=== PATIENT | female | born 1950 | race Caucasian/White ===

== ENCOUNTER → 2020-07-13 10:53 | Outpatient (CLI) | payer MEDICARE, BC, SELFPAY | PROVIDERS: PCP Family Medicine; Visit Provider Family Medicine | DX: Z20.822 Contact with and (suspected) exposure to COVID-19 (principal); U07.1 COVID-19 | CPT/HCPCS: U0003 ==

== ENCOUNTER 2021-02-19 15:56 | Emergency (ER) | payer MEDICARE, BC, SELFPAY ==
[2021-02-19 16:00] VITALS: BP 124/96; PULSE 94; RESP 18; TEMP 36.8; O2SAT 99; BMI 43.6
--- NOTE | 2021-02-19 16:36 | HMH.EDUTC ---
[facility] [place] Disposition Clinical Impression: Sinusitis Qualifiers: Sinusitis location: unspecified location Chronicity: unspecified Qualified Code(s): J32.9 - Chronic sinusitis, unspecified Disposition: Home, Self-Care Condition on Discharge: Good Instructions: Sinusitis, DI for Sinusitis, Azithromycin Additional Instructions: *Monitor Temp, Over the counter Motrin or Tylenol as directed/as needed Tylenol every 4 hours and Motrin every 6 hours (as long as your family doctor has told you that you can take it) for fever or pain. and straight to ER if unable to lower temp less than 101.0 after medication given *Warm salt water gargles may help to soothe the throat *Throat Lozenges *Warm fluids like tea with honey may help to soothe the throat *Sleep elevated *Humidifier/Vaporizer *Take medication as prescribed Follow up IMMEDIATELY for new or worsening symptoms or no Noticeable improvement over the next 48-72 hours. 911 for difficulty breathing or swallowing Referrals: Toby Lorenzana [Primary Care Provider] - As needed Time of Disposition: 16:44 Medical Decision Making - Josh Inquiry Pt receiving controlled substance: No Josh was queried for this patient: No Vital Signs: 02/19/21 16:00 Temperature 98.2 F Temperature Source Oral Pulse Rate [Right Brachial] 94 H Respiratory Rate 18 Blood Pressure [Right Arm] 124/96 H Blood Pressure Mean [Right Arm] 105 Blood Pressure Source [Right Arm] Automatic Cuff Blood Pressure Position [Right Arm] Sitting 02 Sat by Pulse Oximetry 99 Oxygen Delivery Method Room Air Medical Decision Narrative: Patient states that she has taken azithromycin in the past without reactions or complications [facility] HPI - General Stated complaint: poss sinus inf Time Seen by Provider: 02/19/21 16:36 Mode of Arrival: Ambulatory Source of Information: Patient Limitations: No Limitations Description of Symptoms (Recalled from Triage Doc. by RN): PATIENT C/O POSSIBLE SINUS INFECTION HEENT Symptoms (Recalled from RN notes): Yes Resp Symptoms (Recalled from RN notes): No Skin Symptoms (Recalled from RN notes): No MS Symptoms (Recalled from RN notes): No Functional Status (Recalled from RN notes): WNL - History of Present Illness Provider Complaint: Patient state that she feels like she has a sinus infection State that she has been having sinus pain and pressure and feeling pressure in her ears and behind her eyes like she gets when she has a sinus infection State that she wasnt able to get in to see her PCP so she came in here to get checked - Related Data Allergies Allergy/AdvReac Type Severity Reaction Status Date / Time carbamazepine [From Tegretol] Allergy Verified 02/19/21 16:36 guaifenesin [From Mucinex] Allergy Verified 02/19/21 16:36 metformin Allergy Verified 02/19/21 16:36 Penicillins Allergy Verified 02/19/21 16:36 topiramate [From Topamax] Allergy Verified 02/19/21 16:36 - Worker's Comp Is this a Worker's Comp case?: No [facility] History - Hepatitis A Screen Drug use history?: No High risk sexual behaviors?: No History of sexually transmitted infection?: No Currently employed?: No Childcare worker?: No Do you have indoor plumbing?: Yes Do you have electricity?: Yes Attestation statement:: This patient has been screened for Hepatitis A risk factors. I have reviewed the patient's past medical history: Yes ROS Obtained: Yes All systems reviewed & no additional complaints, Yes Systems reviewed as appropriate & no additional complaints - Constitutional Constitutional: Reports system reviewed and no additional complaints, except as docu, Denies body ache, Denies chills, Denies fever(s), Denies headache(s) - ENT Ears, Nose, Mouth, and Throat: Reports system reviewed and no additional complaints, except as docu, Reports sinus pain, Reports sinus pressure, Denies sore throat - Cardiovascular Cardiovascular: Reports system reviewed and no additional complaints, exce
[2021-02-19 16:47] VITALS: BP 124/96; PULSE 94; RESP 18; TEMP 36.8; O2SAT 99
== END 2021-02-19 16:55 | disposition home or self-care (01) ==
PROVIDERS: Emergency Provider Nurse Practitioner; PCP Family Medicine
DX: J32.9 Chronic sinusitis, unspecified (principal); Z88.0 Allergy status to penicillin; Z88.8 Allergy status to other drugs, medicaments and biological substances
CPT/HCPCS: G0463; 99202

== ENCOUNTER 2022-11-12 10:24 | Emergency (ER) | payer MEDICARE, BC, SELFPAY ==
[2022-11-12 10:40] VITALS: BP 152/64; PULSE 89; RESP 20; TEMP 36.7; O2SAT 96; BMI 43.6
--- NOTE | 2022-11-12 10:54 | EXP.UTC ---
Discharge Plan Disposition Patient Disposition: Home, Self-Care Condition: Good Prescriptions Prescriptions: New azithromycin [Zithromax Z-Brayan] 250 mg tablet See Rx Instructions .ROUTE .COMPLEX 5 Days Qty: 6 0RF Rx Instructions: For 250 mg dose pack: take 500 mg today (day 1), then 250 mg for 4 days (days 2-5) prednisone [prednisone] 20 mg tablet 20 mg PO BID 5 Days Qty: 10 0RF No Action azithromycin 250 MG tablet 250 mg PO DIRECTED Qty: 6 0RF Rx Instructions: Take two (2) tablets on day #1, then one (1) tablet day #2 thru #5 Referrals Follow up/Referrals: Toby Lorenzana [Primary Care Provider] - See instructions Activity Restrictions/Add. Instructions Additional Instructions/Restrictions: *Monitor Temp, Over the counter Motrin or Tylenol as directed/as needed Tylenol every 4 hours and Motrin every 6 hours (as long as your family doctor has told you that you can take it) for fever or pain. and straight to ER if unable to lower temp less than 101.0 after medication given *Warm salt water gargles may help to soothe the throat *Throat Lozenges? *Warm fluids like tea with honey may help to soothe the throat? *Sleep elevated *Humidifier/Vaporizer Your throat swab was sent for culture. Those results are typically sent to your primary care. Be sure to follow up in 2-3 days with your family doctor/primary care physician if no improvement so they can review those result and treat if necessary. If you don?t have a primary care doctor, I recommend you get one but in the mean time, you will have to return to a walk in clinic Follow up IMMEDIATELY for new or worsening symptoms or no Noticeable improvement over the next 48-72 hours. 911 for difficulty breathing or swallowing Clinical Impressions Clinical Impression: Sinusitis, Bronchitis Instructions Patient Instructions: DI for Sinusitis, Sinusitis, Acute Bronchitis Discharge ED Provider: Emelina Perez [facility] [place] General Stated complaint: sore throat, chills, cough Mode of Arrival: Ambulatory Source of Information: Patient Limitations: No Limitations Time Seen by Provider: 11/12/22 10:54 Description of Symptoms (Recalled from Triage Doc. 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 States that she started yesterday with sore throat and productive cough States that she waws worried that she may have strep throat Related Data Previous Rx's Medication Instructions Recorded azithromycin 250 mg tablet 250 mg PO DIRECTED #6 tabs 02/19/21 azithromycin 250 mg tablet See Rx Instructions PO .COMPLEX 5 11/12/22 (Zithromax Z-Brayan) days #6 tabs prednisone 20 mg tablet 20 mg PO BID 5 days #10 tabs 11/12/22 Allergies Allergy/AdvReac Type Severity Reaction Status Date / Time carbamazepine [From Tegretol] Allergy Verified 02/19/21 16:36 guaifenesin [From Mucinex] Allergy Verified 02/19/21 16:36 metformin Allergy Verified 02/19/21 16:36 Penicillins Allergy Verified 02/19/21 16:36 topiramate [From Topamax] Allergy Verified 02/19/21 16:36 Worker's Comp Is this a Worker's Comp case?: No [facility] Disclaimer: The information contained in this section may have been updated after the patient was seen, as this information can be updated by other users. Social History Smoking Status: Unknown if ever smoked alcohol intake: never current occupational status: employed Travel in the last 8 weeks: None ROS Obtained: Yes All systems reviewed & no additional complaints except as documented and Yes Systems reviewed as appropria
[2022-11-12 11:07] LABS: UTC Strep Screen (Rapid) Negative (Negative)
[2022-11-12 11:17] VITALS: BP 152/64; PULSE 89; RESP 20; TEMP 36.7; O2SAT 96
== END 2022-11-12 11:24 | disposition home or self-care (01) ==
PROVIDERS: Emergency Provider Nurse Practitioner; PCP Family Medicine
DX: J20.9 Acute bronchitis, unspecified (principal); J01.90 Acute sinusitis, unspecified
CPT/HCPCS: 87880; 99212; 99214; G0463

== ENCOUNTER 2024-12-06 12:58 | Emergency (ER) | payer MEDICARE, BC, SELFPAY ==
[2024-12-06 13:07] VITALS: BP 192/98; PULSE 81; RESP 13; TEMP 36.6; O2SAT 97; BMI 44.8
--- OUTSIDE RECORDS SUMMARY | 2024-12-06 13:07 | XMS_ITS | Data Portability ---
Author Organization [facility] ADMIN Address [address] [place] [address] Assessment No assessment recorded. Plan of Treatment Reminders Order Date Submit Date Provider Last Modified By Organization Details Last Modified Time Details Appointments None record ed. Lab None record ed. Referral None record ed. Procedures None record ed. Surgeries None record ed. Imaging None record ed. Medication Orders None record ed. Patient TargetsNo targets recorded. Patient InstructionsNo instructions recorded. Reason for Referral None Reported. Results Created Date Observation Date Name Description Value Unit Range Abnormal Flag Note LastModifiedBy Organization Detail LastModifiedTime Result Notes None recorded. Procedures Surgical History Date Name Laterality Status Provider Name and Address Organization Details Recorded Time 03/18/20 24 laparoscopic appendectomy completed Shayan Mahajan [facility] [place] 04/02/2024 08:45:35 Imaging Results None recorded. Procedure Notes None recorded. Medical Equipment None Reported. Allergies Allergen ID Allergen Name Allergen Category Reaction Reaction Severity Criticality Documentation Date Start Date Code Code System Note Provider Name and Address Organization Details Recorded Time [id number] Cipro medicatio n Not available Not available Not available 04/02/202437712 3 RxNorm Shayan Mahajan dane [facility] [place] 10:14:01 Medications Name Sig Start Date Stop Date Status Note LastModified by Organization Details LastModified Time pioglitazone 15 mg tablet TAKE 1 TABLET BY MOUTH EVERY DAY active Not Available Not Available No t Available promethazine -DM 6.25 mg-15 mg/5 mL oral syrup TAKE 5 ML BY MOUTH EVERY 6 HOURS NEEDED FOR COUGH / CONGESTION / DRAINAGE active Not Available Not Available N ot Available gabapentin 600 mg tablet TAKE 1 TABLET BY MOUTH EVERY 6 HOURS active Not Available Not Available No t Available doxycycline hyclate 100 mg capsule TAKE 1 CAPSULE BY MOUTH TWICE A DAY FOR 10 DAYS active Not Available Not Available No t Available azithromycin 250 mg tablet TAKE 2 TABLETS BY MOUTH TODAY, THEN TAKE 1 TABLET DAILY FOR 4 DAYS DIRECTED active Not Available Not Available No t Available tizanidine 4 mg tablet TAKE 1 TABLET BY MOUTH THREE TIMES A DAY NEEDED FOR MUSCLE PAIN active Not Available Not Available No t Available prednisone 20 mg tablet TAKE 2 TABLETS BY MOUTH DAILY FOR 4 DAYS, 1 FOR 4 DAYS, 1/2 FOR 4 DAYS, THEN STOP active Not Available Not Available No t Available Synthroid 100 mcg tablet TAKE 1 TABLET BY MOUTH EVERY DAY active Not Available Not Available No t Available ciprofloxaci n 500 mg tablet TAKE 1 TABLET BY MOUTH TWICE A DAY active Not Available Not Available No t Available sulfamethoxa zole 800 mg-trimethop rim 160 mg tablet active Not Available Not Available Not Available omeprazole 40 mg capsule,marshal yed release TAKE 1 CAPSULE BY MOUTH EVERY MORNING active Not Available Not Available No t Available carvedilol 3.125 mg tablet TAKE 1 TABLET BY MOUTH TWICE A DAY active Not Available Not Available No t Available oxycodone-ac etaminophen 5 mg-325 mg tablet active Not Available Not Available Not Available benzonatate 100 mg capsule TAKE 1 CAPSULE ORALLY THREE TIMES A DAY NEEDED FOR COUGH active Not Available Not Available No t Available glimepiride 4 mg tablet TAKE 1 TABLET BY MOUTH EVERY DAY active Not Available Not Available No t Available ibuprofen 600 mg tablet active Not Available Not Available Not Available levofloxacin 500 mg tablet TAKE 1 TABLET BY MOUTH EVERY DAY active Not Available Not Available No t Available methylpredni solone 4 mg tablets in a dose pack TAKE 6 TABLETS ON DAY 1 DIRECTED ON PACKAGE AND DECREASE BY 1 TAB EACH DAY FOR A TOTAL OF 6 DAYS active Not Available Not Available No t Available Ventolin HFA 90 mcg/actuatio n aerosol inhaler INHALE 2 PUFFS DIRECTED EVERY 6 HOURS active Not Available Not Available No t Available cholecalcife rol (vitamin D3) 1,250 mcg (50,000 unit) capsule TAKE 1 CAPSULE BY MOUTH EVERY MONTH active Not Available Not Available No t Available EC-Naproxen 500 mg tablet,delay ed release TAKE 1 TABLET BY MOUTH TWICE A DAY active Not Available Not Available No t Available Vitals Date Recorded Body temperature Oxygen saturation Oxygen saturation in Arterial blood by Pulse oximetry Heart rate Body height Systolic blood pressure Diastolic blood pressure Provider Name and Address Organization Details Last Updated DateTime 4 97.1 [degF] 98 % 98 % 78 /min 170.18 cm 132 mm[Hg] 88 mm[Hg] Shayan Mahajan [place] - [facility] [place] [facility] [place] 4 10:11:55 Social History None recorded. Functional Status None recorded. Mental Status None recorded. Family History Nothing Reported. Medical History No medical history recorded. Gynecological HistoryNo gynecological history recorded. Obstetrics History GPAL:G 0 P 0 0 0 0 Past Encounters Encounter ID Performer Location Encounter Start Date Encounter Closed Date Diagnosis/Indication Diagnosis SNOMED-CT Code Diagnosis ICD10 Code Diagnosis Note [id number] Angeline Alberts MD [facility] [address] [facility] [address] [place] [address] 04/02/2024 09:46:58 04/02/2024 10:27:25 Acute appendicitis 15968031 K35.80 stable postop. She may resume activity as tolerated. There was some mild suture reaction at 1 of the incision sites with minimal scabbing. I have recommende d not soaking the area until this has resolved. Skin react ion to suture material [id number] T81.89XA Health Concerns Section Related Observation LastModified by Organization Detai ls LastModified Time None Recorded Concern Status LastModified by Organization Details LastModified Time None Recorded Advance Directives Directive None Recorded Payers Insurance Date Sequence Insurance Name Policy Number Policy Fischer Covered Member ID Fischer Member ID Guarantor Name 04/02/2024 1 [place] Andra Alvarenga [id number] Andra Alvarenga 04/02/2024 2 [place] [id number] Andra Alvarenga [id number] Andra Alvarenga Notes Date Note Type Note Provider Name and Address Organization Details Recorded Time 04/02/2024 text/html 2 weeks status post laparoscopic appendectomy. Pathology showed acute appendicitis and serositis. She feels well overall, has some mild erythema and drainage surrounding the lower abdominal incision, has been using Neosporin on this. Angeline Alberts MD [address] [facility], [place], [address], [place] - [facility] - [place] & [place] 04/02/2024 10:29:08 OBGyn Episode No OBEpisode recorded.
--- OUTSIDE RECORDS SUMMARY | 2024-12-06 13:07 | XMS_ITS | Clinical Summary ---
Author Organization Healthcare Address [address] [place] [address] Care Team Providers Care Ghost Writer Name Role Phone Toby Lorenzana MD Primary Care Provider [phone] Allergies Active Allergy Reactions Criticality Noted Date Comments Carbamazepine Unknown - Patient st ates they do not know rxn details,Rash Low 11/27/2013 Guaifenesin Er Anaphylaxis High 08/13/2017 Metformin Diarrhea Medium 01/15/2021 Penicillins Unknown - Patient st ates they do not know rxn details Low 11/27/2013 Topiramate Unknown - Patient st ates they do not know rxn details Low 11/27/2013 Medications BABY ASPIRIN PO 4 Active Calcium Carbonate-Vit D-Min (CALCIUM 1200 PO) 4 Caltrate Calcium daily 4 Active carvedilol (Coreg) 3.125 MG tablet 1 Active gabapentin (Neurontin) 300 MG capsule 3 Active levothyroxine (Synthroid, Levoxyl) 100 MCG tablet 3 Active cetirizine (ZyrTEC) 10 MG tablet Active omeprazole (PriLOSEC) [address] capsule Do not crush or chew. 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 02/24/2022 Pseudophakia of both eyes 02/24/2022 Left eye injury 06/21/2021 Nuclear sclerotic cataract of right eye 09/22/19 21 Combined form of senile cataract of left eye Essential hypertension 11/27/2013 Hyperlipidemia 11/27/2013 Hypothyroidism 11/27/2013 Osteoarthritis of foot, 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/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 Osteoarthritis of left knee 11/27/2013 Tibialis posterior tendon tear, nontraumatic Trigeminal neuralgia 11/27/2013 Family History Medical History Relation Name Comments Cardiac disorder Father Other cancer Father Diabetes Mother Hypertension Mother Thyroid disease Mother Relation Name Status Comments Father Mother Social History Tobacco Use Types Packs/Day Years Used Date Smoking Tobacco: Never Smokeless Tobacco: Never Alcohol Use Standard Drinks/Week Comments Yes 0 (1 standard drink = 0.6 oz pur e alcohol) Comments Unknown Sex and Gender Information Value Date Recorded Sex Assigned at Not on file Legal Sex Female 6:15 PM EDT Gender Identity Not on file Sexual Orientation Not on file Last Filed Vital Signs Vital Sign Reading Time Taken Comments Blood Pressure 137/82 12/11/2013 2:40 PM EDT Pulse - - Temperature - - Respiratory Rate - - Oxygen Saturation - - Inhaled Oxygen Concentration - - Weight 83.9 kg (185 lb 0.2 oz) 12/11/2013 2:01 P M EDT Height 172.7 cm (5' 8 ) 12/11/2013 2:01 PM EDT Body Mass Index 28.13 12/11/2013 2:01 PM EDT Plan of Treatment Health Maintenance Due Date Last Done Comments [facility]-Bone Density Scan 1948 [facility]-Depression Screening 1948 [facility]-Hepatitis C Screening 1950 [facility]-Medicare Annual Wellness (AWV) 1948 [facility]-/Child/Adol SDOH Screenings 1948 [facility]- SDOH Screenings 1966 [facility]-Adult SDOH Screenings 1966 [facility]-DTaP,Tdap,and Td Vaccines (1 - Tdap) 1967 [facility]-Pneumococcal Vaccine: 50+ Years (1 of 1 - PCV) 1998 [facility]-Zoster Vaccines (1 of 2) 1998 [facility]-RSV Vaccine: 60+ Years or (1 - 1-dose 75+ series) 2023 [facility]-19 Vaccine ( - season) 2024 05/08/2021, 09/11/2020, 08/12/2020 [facility]-Influenza Vaccine (Season Ended) 2025 HPV Vaccines Aged Out No longer eligi ble based on patient's age to complete this topic [facility]-HIB Vaccines Aged Out No longer e ligible based on patient's age to complete this topic [facility]-Hepatitis A Vaccines Aged Out No longer eligible based on patient's age to complete this topic [facility]-IPV Vaccines Aged Out No longer e ligible based on patient's age to complete this topic [facility]-Rotavirus Vaccines Aged Out No lo nger eligible based on patient's age to complete this topic Insurance MEDICARE Care Teams Ghost Writer Relationship Specialty Start Date End Date Toby Lorenzana MD [address] [place], [place] [phone] PCP - General 11/13/20
[2024-12-06 13:47] VITALS: BP 194/94; PULSE 75; O2SAT 96
[2024-12-06] MEDS: DEXAMETHASONE 4MG/ML 1ML VIAL 10 MG IM (13:58)
--- NOTE | 2024-12-06 13:59 | [facility].EDGENADL ---
Discharge Plan Disposition Patient Disposition: Home, Self-Care Condition: Good Prescriptions Prescriptions: New sulfamethoxazole-trimethoprim [Bactrim DS] 800-160 mg tablet 1 tab PO BID 10 Days Qty: 20 0RF cefdinir 300 mg capsule 300 mg PO BID 10 Days Qty: 20 0RF No Action azithromycin 250 MG tablet 250 mg PO DIRECTED Qty: 6 0RF Rx Instructions: Take two (2) tablets on day #1, then one (1) tablet day #2 thru #5 azithromycin [Zithromax Z-Brayan] 250 mg tablet See Rx Instructions .ROUTE .COMPLEX 5 Days Qty: 6 0RF Rx Instructions: For 250 mg dose pack: take 500 mg today (day 1), then 250 mg for 4 days (days 2-5) prednisone [prednisone] 20 mg tablet 20 mg PO BID 5 Days Qty: 10 0RF azithromycin [Zithromax] 250 mg tablet 250 mg PO UD DOSE PK Qty: 6 0RF Rx Instructions: Take two (2) tablets today, then one (1) tablet days #2 thru #5 benzonatate 100 mg capsule 100 mg PO TIDP PRN (Reason: Cough) Qty: 30 0RF methylprednisolone 4 mg Tablets,Dose Pack 4 mg PO DIRECTED 6 Days Qty: 21 0RF Rx Instructions: Take 1 pack as directed for 6 days Referrals Follow up/Referrals: Toby Lorenzana [Primary Care Provider, Medical] - See instructions Activity Restrictions/Add. Instructions Additional Instructions/Restrictions: You were evaluated in the emergency department today. As we discussed, it is possible this could all be inflammatory from an insect bite, but given the worsening swelling and redness, we are prescribing you 2 antibiotics for empiric coverage. Please follow-up closely with your primary care provider over the next week for reassessment. Return to the emergency department for new or worsening symptoms such as pain with eye movements, changes in vision, or other concerns. Clinical Impressions Clinical Impression: Preseptal cellulitis of left eye, Insect bite of left eyelid Stand Alone Forms Stand Alone Forms: Work/School Release Instructions Patient Instructions: DI for Orbital Cellulitis Print Language Print Language: Cymraes Discharge ED Provider: Loretta Elizabeth General Adult HPI General Chief complaint: Eye Problems Stated complaint: tick bite-swelling L eye Time Seen by Provider: 12/06/24 13:07 Mode of Arrival: Ambulatory Source of Information: Patient Description of Symptoms (Recalled from ER Triage Doc. by RN): pt presents to ED with c/o left eye swelling, redness, itchyness. pt reports that this past monday she was sitting on her porch when she felt something attempt to go into her eye. pt states that she swatted at her eye. History of Present Illness HPI narrative: This patient is a 74-year-old female with a history of diabetes and hypertension presenting to the emergency department for evaluation with concern for left eye redness, swelling, and itchiness. She states that on Monday, she was sitting on her porch when she noted something black popped up in between her glasses and her face. She swatted it away and did not feel any sort of bite, sting, or other issue. She notes that she woke up morning with swelling of her left eye that improved throughout the day, but then she woke up today with significant worsening swelling and new redness. No fevers, no pain with eye movement, no vision change, no foreign body sensation, no eye irritation. Related Data Previous Rx's ?Medication ?Instructions ?Recorded azithromycin 250 mg tablet 250 mg PO DIRECTED #6 tabs 02/19/21 azithromycin 250 mg tablet See Rx Instructions PO .COMPLEX 5 11/12/22 (Zithromax Z-Brayan) days #6 tabs prednisone 20 mg tablet 20 mg PO BID 5 days #10 tabs 11/12/22 azithromycin 250 mg tablet 250 mg PO UD DOSE PK #6 tabs 03/04/24 (Zithromax) benzonatate 100 mg capsule 100 mg PO TIDP PRN Cough #30 caps 03/04/24 methylprednisolone 4 mg tablets in 4 mg PO DIRECTED 6 days #21 tabs 03/04/24 a dose pack cefdinir 300 mg capsule 300 mg PO BID 10 days #20 caps 12/06/24 sulfamethoxazole 800 1 tab PO BID 10 days #20 tabs 12/06/24 mg-trimethoprim 160 mg tablet (Bactrim DS) Allergies Allergy/AdvReac Type Severity Reaction Status Date / Time carbamazepine (From Tegretol) Allergy Verified 03/04/24 14:19 ciprofloxacin (From Cipro) Allergy Verified 03/04/24 14:19 guaifenesin (From Mucinex) Allergy Verified 03/04/24 14:19 metformin Allergy Verified 03/04/24 14:19 Penicillins Allergy Verified 03/04/24 14:19 topiramate (From Topamax) Allergy Verified 03/04/24 14:19 [facility] Disclaimer: The information contained in this section may have been updated after the patient was seen, as this information can be updated by other users. Social History Smoking Status: Never smoker alcohol intake: never current occupational status: employed Travel in the last 8 weeks?: None Have you lived/traveled outside [place] in past 30 days?: No Contact w/someone who lives/traveled outside [place] past 30 days?: No Exposure to someone with infectious disease in past 14 days?: No Do you have a fever (greater than 100.4 F or 38 C)?: No Have you tested positive for COVID-19?: No Exposed to someone with COVID-19 in past 14 days?: No Do you have a sore throat?: No Do you have a cough?: No Do you have any weakness?: No Do you have any diarrhea?: No Are you experiencing any unusual bleeding?: No Do you have any muscle aches/pain?: No Do you have any abdominal pain?: No Are you experiencing loss of taste or smell?: No ROS Obtained: Yes All systems reviewed & no additional complaints except as documented Physical Exam General General appearance: alert and in no apparent distress Head Head exam: atraumatic and normocephalic Eye Eye exam: Present PERRL, EOMI, periorbital swelling, periorbital tenderness and other (Left eye periorbital redness, warmth, and swelling. No pain with extraocular movement); Absent conjunctival redness or conjunctival injection ENT ENT exam: Present normal exam, normal oropharynx, mucous membranes moist and normal external ear exam Neck Neck exam: Present normal inspection, full ROM and trachea midline; Absent tenderness Chest Chest inspection: Present normal inspection and symmetric chest wall rise; Absent tenderness Respiratory Respiratory exam: Present normal lung sounds bilaterally; Absent respiratory distress, wheezes, stridor or accessory muscle use Cardiovascular Cardiovascular exam: Present regular rate and normal rhythm Abdominal Exam Abdominal exam: Present soft; Absent distention, tenderness or guarding Extremities Exam Extremities exam: Present normal inspection, full ROM and normal capillary refill; Absent tenderness or edema Back Exam Back exam: Present normal inspection and full ROM; Absent tenderness Neurological Exam Neurological exam: Present alert, oriented X3, CN II-XII intact and normal gait; Absent motor sensory deficit Psychiatric Psychiatric exam: Present normal affect and normal mood Skin Skin exam: Present warm and dry Medical Decision Making Medical Records Medical records reviewed: Yes I reviewed the patient's medical records. Screening: Per USPSTF and CDC recommendations, given the prevalence of disease in our region, it is our hospital?s policy to screen for HIV and viral Hepatitis for all patients aged 18 and over and those with ongoing risk factors. Josh Inquiry Pt receiving controlled substance: No Vital Signs: 12/06/24 13:07 12/06/24 13:47 Temperature 97.8 F Temperature Source Oral Pulse Rate 75 Pulse Rate [Left Radial] 81 Respiratory Rate 13 Blood Pressure 194/94 H Blood Pressure [Right Arm] 192/98 H Blood Pressure Mean [Right Arm] 129 Blood Pressure Source [Right Arm] Manual Cuff/ Doppler Blood Pressure Position [Right Arm] Sitting 02 Sat by Pulse Oximetry 97 96 Lab Data Lab results reviewed: Yes I reviewed the patient's lab results. Orders (Tests/Meds): ED MEDICATIONS Discontinued Medications Generic Name Dose Route Start Last Admin Trade Name Freq PRN Reason Stop Dose Admin Dexamethasone Sodium Phosphate 10 mg 12/06/24 13:34 12/06/24 13:58 Dexamethasone 4mg/Ml 1ml Vial IM 12/06/24 13:35 10 mg ONCE ONE Administration ORDERS Category Date Time Status HIV Combo Stat Lab 12/06/24 13:13 Ordered Hepatitis C Ab Qual. W/ RFX Stat Lab 12/06/24 13:13 Ordered Medical Decision Narrative: In summary, this patient is a 74-year-old female presenting to the Emergency Department for evaluation of left eye redness, warmth, and swelling after an insect flew between her eyeglasses yesterday. Differential diagnoses considered include but are not limited to periorbital cellulitis, orbital cellulitis, local inflammatory response secondary to insect bite. Ruling out the most morbid conditions drove assessment. It should be noted patient's history includes diabetes and hypertension which may or may not be at goal therapy. This complicates all aspects of care by increasing patient's risk for morbidity. On exam, the patient has left periorbital swelling, redness, and tenderness but has normal eye exam with normal pupils, no conjunctival injection or erythema. No pain with extraocular movement, no visual disturbance. I feel that this could be localized laboratory response related to a presumed insect bite, though she did not feel 1 at the time. It also possibly could be preseptal cellulitis given the worsening redness and warmth. Will like to prescribe dual therapy with Bactrim and cefdinir. I also gave IM dexamethasone for the periorbital edema for symptomatic treatment in case it could be localized inflammatory response. Ultimately, I feel the patient is appropriate for discharge home with close follow-up with PCP for recheck. She was given strict return precautions Critical Care Critical Care Time Critical Care Time: No
[2024-12-06 14:06] VITALS: BP 190/89; PULSE 87; RESP 17; TEMP 37; O2SAT 98
== END 2024-12-06 14:08 | disposition home or self-care (01) ==
PROVIDERS: Emergency Provider Emergency Medicine; PCP Family Medicine
DX: L03.213 Periorbital cellulitis (principal); S00.262A Insect bite (nonvenomous) of left eyelid and periocular area, initial encounter; W57.XXXA Bitten or stung by nonvenomous insect and other nonvenomous arthropods, initial encounter
CPT/HCPCS: 96372; 99283; J1100